=== PATIENT | male | born 1995 | race Caucasian/White ===

== ENCOUNTER 2017-09-22 09:03 | Inpatient (IN) | payer MEDICAID ==
[2017-09-22 10:15] LABS: ADD MAN DIFF? NO
[2017-09-22] MEDS: SODIUM CHLORIDE 0.9% 1L BAG IV* (10:22)
[2017-09-22 10:23] LABS: WHITE BLOOD COUNT 15.4 10^3/ul (4.8-10.8)
[2017-09-22 10:23] LABS: BASOPHILS % 0.1 % (0.0-2.0); EOSINOPHILS % 0.1 % (0.0-7.0); HEMATOCRIT 49.3 % (42.0-52.0); HEMOGLOBIN 15.6 g/dl (14.0-18.0); LYMPHOCYTES # 0.6 10^3/ul (0.8-2.9); LYMPHOCYTES % 4.2 % (15.0-51.0); MEAN CORPUSCULAR HGB CONC 31.6 g/dl (32.0-37.0); MEAN CORPUSCULAR VOLUME 91.6 fl (82.0-101.0); MEAN PLATELET VOLUME 10.8 fl (7.4-10.4); MONOCYTE # 0.5 10^3/ul (0.3-0.9); MONOCYTES % 3.4 % (0.0-11.0); NEUTROPHIL # 14.1 10^3/ul (1.6-7.5); NEUTROPHILS % 91.9 % (39.0-77.0); PLATELET COUNT 313 10^3/UL (140-415); RED BLOOD COUNT 5.38 10^6/ul (4.70-6.10); RED CELL DISTRIBUTION WIDTH 14.4 % (11.5-14.5)
[2017-09-22 10:37] LABS: INR 1.04; PROTIME 13.7 Sec (11.9-14.9); PT RATIO 1.1
[2017-09-22 10:38] LABS: PARTIAL THROMBOPLASTIN TIME 28.6 Sec (25.0-35.0)
[2017-09-22 10:45] LABS: ALANINE AMINOTRANSFERASE 28 IU/L (13-69); ALBUMIN/GLOBULIN RATIO 1.38; ALKALINE PHOSPHATASE 115 IU/L (42-121); ANION GAP 16 (8-16); ASPARTATE AMINO TRANSFERASE 37 IU/L (15-46); BILIRUBIN,INDIRECT 1.2 mg/dl (0-1.1); BILIRUBIN,TOTAL 1.2 mg/dl (0.2-1.3); BLOOD UREA NITROGEN 29 mg/dl (7-20); CALCIUM 9.9 mg/dl (8.4-10.2); CARBON DIOXIDE 31 mmol/L (21-31); CHLORIDE 101 mmol/L (97-110); CREATININE 0.69 mg/dl (0.61-1.24); GLUCOSE 100 mg/dl (70-220); POTASSIUM 3.9 mmol/L (3.5-5.1); SODIUM 144 mmol/L (135-144); TOTAL PROTEIN 8.6 g/dl (6.1-8.1)
[2017-09-22 10:47] LABS: LACTIC ACID 3.4 mmol/L (0.5-2.0)
[2017-09-22] MEDS ORDERED: ACETAMINOPHEN 650MG/20.3ML CUP (10:59)
[2017-09-22] MEDS: CEFEPIME 2GM/50 ML (PMX) 50 ML IVPB (11:14)
[2017-09-22] MEDS: ACETAMINOPHEN 650MG/20.3ML CUP NGT (11:30)
[2017-09-22] MEDS ORDERED: ONDANSETRON 4 MG INJ IV ×2 (11:30→13:00)
[2017-09-22] MEDS ORDERED: ACETAMINOPHEN 325 MG TAB PO ×2 (11:30→13:00)
[2017-09-22 11:31] LABS: URINE BLOOD (Dip) POC Trace-intact (NEGATIVE); URINE GLUCOSE (Dip) POC Negative (NEGATIVE); URINE KETONES (Dip) POC Trace (NEGATIVE); URINE LEUKOCYTE EST (Dip) POC Negative (NEGATIVE); URINE NITRITE (Dip) POC Negative (NEGATIVE); URINE TOTAL PROTEIN POC 1+ (NEGATIVE)
[2017-09-22 11:31] LABS: URINE PH (Dip) POC 8.5 (5.0-8.5)
[2017-09-22 11:38] LABS: ADD UMIC NO; UR ASCORBIC ACID 40 mg/dL (NEGATIVE); UR BILIRUBIN (Dip) NEGATIVE (NEGATIVE); UR BLOOD (Dip) NEGATIVE (NEGATIVE); UR CLARITY CLEAR (CLEAR); UR COLOR YELLOW (YELLOW); UR GLUCOSE (Dip) NEGATIVE (NEGATIVE); UR KETONES (Dip) TRACE mg/dL (NEGATIVE); UR LEUKOCYTE ESTERASE (Dip) NEGATIVE Leu/ul (NEGATIVE); UR NITRITE (Dip) NEGATIVE (NEGATIVE); UR SPECIFIC GRAVITY (Dip) 1.024 (1.003-1.030); UR TOTAL PROTEIN (Dip) NEGATIVE (NEGATIVE); UR UROBILINOGEN (Dip) 1+ mg/dL (NEGATIVE)
[2017-09-22] MEDS: VANCOMYCIN 1 GM (PMX) 250 ML IVPB (12:53)
[2017-09-22] MEDS ORDERED: VANCOMYCIN IV PER PHARMACY XX (13:00)
[2017-09-22] MEDS ORDERED: MAGNESIUM HYDROXIDE 30ML CUP PO (13:00)
[2017-09-22] MEDS ORDERED: hydrALAzine 20 MG INJ IV (13:00)
[2017-09-22] MEDS ORDERED: NACL 0.9% 3 ML SYG IV (13:00)
[2017-09-22] MEDS ORDERED: ALBUTEROL/IPRATROPIUM (NEB) 3 ML AMP HHN (13:00)
[2017-09-22] MEDS ORDERED: NITROGLYCERIN (SL) 0.4 MG TAB SL (13:00)
[2017-09-22] MEDS ORDERED: DOCUSATE SODIUM 100 MG CAP PO (13:00)
[2017-09-22] MEDS ORDERED: HYDROCODONE/APAP (5/325) TAB PO (13:00)
[2017-09-22] MEDS ORDERED: morphine 2 MG INJ IV (13:00)
[2017-09-22] MEDS ORDERED: NA PHOSPHATE/BIPHOS 133 ML ENEMA PR (13:00)
[2017-09-22] MEDS: SOD CHLORIDE 0.9% 1,000 ML IV ×3 (13:13→22:53)
[2017-09-22 13:36] LABS: FREE T4 (FREE THYROXINE) 1.28 ng/dl (0.79-2.35)
[2017-09-22 13:46] LABS: LACTIC ACID 3.3 mmol/L (0.5-2.0)
[2017-09-22] MEDS: LIDOCAINE 1% (MPF) 5 ML VIAL SC (15:10)
[2017-09-22] MEDS: SOD CHLORIDE 0.9% 100 ML (15:30)
[2017-09-22 16:51] LABS: LACTIC ACID 1.1 mmol/L (0.5-2.0)
[2017-09-22] MEDS: GLYCOPYRROLATE 1 MG TAB GTB (17:41)
[2017-09-22 21:26] LABS: LACTIC ACID 1.2 mmol/L (0.5-2.0)
[2017-09-22] MEDS: POLYETHYLENE GLYCOL 17 GM PACKET GTB (21:33)
[2017-09-22] MEDS: MONTELUKAST 10 MG TAB GTB (21:33)
[2017-09-22] MEDS: PIPER-TAZO 3.375 GM IV (PMX) 100 ML IVPB (21:33)
[2017-09-22] MEDS: VANCOMYCIN 750 MG in SOD CHLORIDE 0.9% 150 ML IVPB (21:33)
[2017-09-22] MEDS: MAGNESIUM HYDROXIDE 30ML CUP GTB (21:33)
[2017-09-22] MEDS: ACETAMINOPHEN 325 MG TAB PO (22:00)
[2017-09-22] MEDS: FAMOTIDINE 20 MG TAB GTB (23:49)
[2017-09-22] MEDS: HEPARIN 5,000 UNIT/0.5 ML VIAL SC (23:51)
[2017-09-23 00:20] LABS: LACTIC ACID 1.5 mmol/L (0.5-2.0)
[2017-09-23] MEDS: FLUTICASONE 0.05% 16 GM NAS SPRAY NASAL ×3 (00:56→21:29)
[2017-09-23] MEDS: GLYCOPYRROLATE 1 MG TAB GTB ×4 (00:56→19:06)
[2017-09-23] MEDS: PIPER-TAZO 3.375 GM IV (PMX) 100 ML IVPB ×4 (02:13→19:06)
[2017-09-23] MEDS: SOD CHLORIDE 0.9% 1,000 ML IV ×4 (05:56→19:07)
[2017-09-23 05:59] LABS: ADD MAN DIFF? NO
[2017-09-23 06:12] LABS: WHITE BLOOD COUNT 15.9 10^3/ul (4.8-10.8)
[2017-09-23 06:12] LABS: BASOPHILS % 0.2 % (0.0-2.0); EOSINOPHILS # 0.2 10^3/ul (0.0-0.5); EOSINOPHILS % 0.9 % (0.0-7.0); HEMATOCRIT 35.6 % (42.0-52.0); HEMOGLOBIN 11.4 g/dl (14.0-18.0); LYMPHOCYTES % 12.4 % (15.0-51.0); MEAN CORPUSCULAR HEMOGLOBIN 29.6 pg (29.0-33.0); MEAN CORPUSCULAR VOLUME 92.5 fl (82.0-101.0); MEAN PLATELET VOLUME 10.9 fl (7.4-10.4); MONOCYTE # 0.9 10^3/ul (0.3-0.9); MONOCYTES % 5.6 % (0.0-11.0); NEUTROPHIL # 12.8 10^3/ul (1.6-7.5); NEUTROPHILS % 80.5 % (39.0-77.0); PLATELET COUNT 208 10^3/UL (140-415); RED BLOOD COUNT 3.85 10^6/ul (4.70-6.10); RED CELL DISTRIBUTION WIDTH 14.5 % (11.5-14.5)
[2017-09-23 06:39] LABS: ANION GAP 10 (8-16); BLOOD UREA NITROGEN 9 mg/dl (7-20); CALCIUM 8.5 mg/dl (8.4-10.2); CARBON DIOXIDE 24 mmol/L (21-31); CHLORIDE 109 mmol/L (97-110); CREATININE 0.56 mg/dl (0.61-1.24); GLUCOSE 111 mg/dl (70-220); MAGNESIUM 1.9 mg/dl (1.7-2.5); PHOSPHORUS 3.2 mg/dl (2.5-4.9); POTASSIUM 3.4 mmol/L (3.5-5.1); SODIUM 140 mmol/L (135-144)
[2017-09-23 06:48] LABS: HEMOGLOBIN A1C 5.5 % (0-5.9)
[2017-09-23 06:51] LABS: CHOLESTEROL 60 mg/dl (100-200)
[2017-09-23 06:51] LABS: HDL CHOLESTEROL 30 mg/dl (30-63); LDL CHOLESTEROL,CALCULATED 10 mg/dl; TRIGLYCERIDES 100 mg/dl (0-149)
[2017-09-23 07:06] LABS: THYROID STIMULATING HORMONE 0.865 MIU/L (0.465-4.680)
[2017-09-23] MEDS: VANCOMYCIN 750 MG in SOD CHLORIDE 0.9% 150 ML IVPB ×3 (07:31→21:29)
[2017-09-23] MEDS: POLYETHYLENE GLYCOL 17 GM PACKET GTB ×2 (09:00→21:00)
[2017-09-23] MEDS: FAMOTIDINE 20 MG TAB GTB ×2 (10:31→21:29)
[2017-09-23] MEDS: MULTIVITAMINS THERAPEUTIC TAB GTB (10:31)
[2017-09-23] MEDS: MIDODRINE 5 MG TAB GTB ×3 (10:31→19:05)
[2017-09-23] MEDS: HEPARIN 5,000 UNIT/0.5 ML VIAL SC ×2 (10:48→21:32)
[2017-09-23] MEDS: MAGNESIUM HYDROXIDE 30ML CUP GTB (21:00)
[2017-09-23 21:14] LABS: VANCOMYCIN,TROUGH 16.4 ug/ml (10.0-20.0)
[2017-09-23] MEDS: MONTELUKAST 10 MG TAB GTB (21:29)
[2017-09-24] MEDS: GLYCOPYRROLATE 1 MG TAB GTB ×4 (00:10→20:33)
[2017-09-24] MEDS: PIPER-TAZO 3.375 GM IV (PMX) 100 ML IVPB ×4 (00:10→17:33)
[2017-09-24] MEDS: SOD CHLORIDE 0.9% 1,000 ML IV ×3 (02:00→19:34)
[2017-09-24] MEDS: VANCOMYCIN 750 MG in SOD CHLORIDE 0.9% 150 ML IVPB ×3 (06:08→20:35)
[2017-09-24] MEDS: POLYETHYLENE GLYCOL 17 GM PACKET GTB (08:49)
[2017-09-24] MEDS: MULTIVITAMINS THERAPEUTIC TAB GTB (08:49)
[2017-09-24] MEDS: FAMOTIDINE 20 MG TAB GTB ×2 (08:49→20:33)
[2017-09-24] MEDS: HEPARIN 5,000 UNIT/0.5 ML VIAL SC ×2 (08:52→20:41)
[2017-09-24] MEDS: FLUTICASONE 0.05% 16 GM NAS SPRAY NASAL ×2 (08:53→20:33)
[2017-09-24 09:02] LABS: ADD MAN DIFF? NO
[2017-09-24 09:07] LABS: WHITE BLOOD COUNT 9.5 10^3/ul (4.8-10.8)
[2017-09-24 09:07] LABS: BASOPHILS % 0.2 % (0.0-2.0); EOSINOPHILS # 0.1 10^3/ul (0.0-0.5); EOSINOPHILS % 0.9 % (0.0-7.0); HEMOGLOBIN 11.8 g/dl (14.0-18.0); LYMPHOCYTES # 1.4 10^3/ul (0.8-2.9); LYMPHOCYTES % 14.7 % (15.0-51.0); MEAN CORPUSCULAR HEMOGLOBIN 30.2 pg (29.0-33.0); MEAN CORPUSCULAR HGB CONC 31.9 g/dl (32.0-37.0); MEAN CORPUSCULAR VOLUME 94.6 fl (82.0-101.0); MEAN PLATELET VOLUME 11.6 fl (7.4-10.4); MONOCYTE # 1.1 10^3/ul (0.3-0.9); MONOCYTES % 11.6 % (0.0-11.0); NEUTROPHIL # 6.9 10^3/ul (1.6-7.5); NEUTROPHILS % 72.4 % (39.0-77.0); PLATELET COUNT 233 10^3/UL (140-415); RED BLOOD COUNT 3.91 10^6/ul (4.70-6.10); RED CELL DISTRIBUTION WIDTH 14.1 % (11.5-14.5)
[2017-09-24] MEDS: MIDODRINE 5 MG TAB GTB ×3 (09:54→17:33)
[2017-09-24 09:55] LABS: ANION GAP 11 (8-16); BLOOD UREA NITROGEN 12 mg/dl (7-20); CALCIUM 8.8 mg/dl (8.4-10.2); CARBON DIOXIDE 24 mmol/L (21-31); CHLORIDE 112 mmol/L (97-110); CREATININE 0.75 mg/dl (0.61-1.24); GLUCOSE 106 mg/dl (70-220); POTASSIUM 3.7 mmol/L (3.5-5.1); SODIUM 143 mmol/L (135-144)
[2017-09-24] MEDS ORDERED: morphine 2 MG INJ IV (13:00)
[2017-09-24] MEDS: NYSTATIN 15 GM OINT TOP (18:00)
[2017-09-24] MEDS: MAGNESIUM HYDROXIDE 30ML CUP GTB (20:33)
[2017-09-24] MEDS: MONTELUKAST 10 MG TAB GTB (20:33)
[2017-09-25] MEDS: PIPER-TAZO 3.375 GM IV (PMX) 100 ML IVPB ×5 (01:09→22:05)
[2017-09-25] MEDS: GLYCOPYRROLATE 1 MG TAB GTB ×4 (01:12→18:47)
[2017-09-25] MEDS: VANCOMYCIN 750 MG in SOD CHLORIDE 0.9% 150 ML IVPB ×2 (05:54→14:22)
[2017-09-25] MEDS: SOD CHLORIDE 0.9% 1,000 ML IV (06:16)
[2017-09-25 07:34] LABS: ADD MAN DIFF? NO
[2017-09-25 07:42] LABS: BASOPHILS % 0.4 % (0.0-2.0); EOSINOPHILS % 0.6 % (0.0-7.0); HEMATOCRIT 37.6 % (42.0-52.0); HEMOGLOBIN 11.7 g/dl (14.0-18.0); LYMPHOCYTES # 1.3 10^3/ul (0.8-2.9); LYMPHOCYTES % 18.8 % (15.0-51.0); MEAN CORPUSCULAR HEMOGLOBIN 29.5 pg (29.0-33.0); MEAN CORPUSCULAR HGB CONC 31.1 g/dl (32.0-37.0); MEAN CORPUSCULAR VOLUME 94.9 fl (82.0-101.0); MEAN PLATELET VOLUME 11.4 fl (7.4-10.4); MONOCYTE # 0.8 10^3/ul (0.3-0.9); MONOCYTES % 10.9 % (0.0-11.0); NEUTROPHIL # 4.9 10^3/ul (1.6-7.5); PLATELET COUNT 265 10^3/UL (140-415); RED BLOOD COUNT 3.96 10^6/ul (4.70-6.10); RED CELL DISTRIBUTION WIDTH 14.1 % (11.5-14.5)
[2017-09-25 07:42] LABS: WHITE BLOOD COUNT 7.1 10^3/ul (4.8-10.8)
[2017-09-25 08:02] LABS: ANION GAP 12 (8-16); BLOOD UREA NITROGEN 13 mg/dl (7-20); CALCIUM 8.8 mg/dl (8.4-10.2); CARBON DIOXIDE 24 mmol/L (21-31); CHLORIDE 114 mmol/L (97-110); CREATININE 1.08 mg/dl (0.61-1.24); GLUCOSE 137 mg/dl (70-220); POTASSIUM 3.2 mmol/L (3.5-5.1); SODIUM 147 mmol/L (135-144)
[2017-09-25] MEDS: FAMOTIDINE 20 MG TAB GTB ×2 (09:22→22:05)
[2017-09-25] MEDS: NYSTATIN 15 GM OINT TOP ×2 (09:23→22:05)
[2017-09-25] MEDS: FLUTICASONE 0.05% 16 GM NAS SPRAY NASAL ×2 (09:23→22:05)
[2017-09-25] MEDS: HEPARIN 5,000 UNIT/0.5 ML VIAL SC ×2 (09:41→22:13)
[2017-09-25] MEDS: DEXTROSE 5% 1,000 ML IV ×2 (09:54→22:50)
[2017-09-25] MEDS: MULTIVITAMINS THERAPEUTIC TAB GTB (09:55)
[2017-09-25] MEDS: MIDODRINE 5 MG TAB GTB (09:57)
[2017-09-25] MEDS: POTASSIUM CHLORIDE 100 ML IVPB ×3 (10:38→14:22)
[2017-09-25] MEDS: MIDODRINE 2.5 MG TAB GTB ×2 (14:55→17:10)
[2017-09-25] MEDS: MAGNESIUM HYDROXIDE 30ML CUP GTB (21:00)
[2017-09-25 21:28] LABS: VANCOMYCIN,TROUGH 29.2 ug/ml (10.0-20.0)
[2017-09-25] MEDS: MONTELUKAST 10 MG TAB GTB (22:05)
[2017-09-25] MEDS: LORAZEPAM 2 MG INJ IV (23:59)
[2017-09-26] MEDS: GLYCOPYRROLATE 1 MG TAB GTB ×3 (01:22→12:46)
[2017-09-26] MEDS: PIPER-TAZO 3.375 GM IV (PMX) 100 ML IVPB ×2 (06:05→12:46)
[2017-09-26 08:18] LABS: ADD MAN DIFF? NO; BASOPHILS % 0.3 % (0.0-2.0); EOSINOPHILS # 0.1 10^3/ul (0.0-0.5); EOSINOPHILS % 0.9 % (0.0-7.0); HEMOGLOBIN 12.1 g/dl (14.0-18.0); LYMPHOCYTES % 11.6 % (15.0-51.0); MEAN CORPUSCULAR HEMOGLOBIN 29.7 pg (29.0-33.0); MEAN CORPUSCULAR HGB CONC 31.8 g/dl (32.0-37.0); MEAN CORPUSCULAR VOLUME 93.4 fl (82.0-101.0); MEAN PLATELET VOLUME 10.8 fl (7.4-10.4); MONOCYTE # 1.1 10^3/ul (0.3-0.9); MONOCYTES % 12.9 % (0.0-11.0); NEUTROPHIL # 6.4 10^3/ul (1.6-7.5); NEUTROPHILS % 73.7 % (39.0-77.0); PLATELET COUNT 282 10^3/UL (140-415); RED BLOOD COUNT 4.07 10^6/ul (4.70-6.10); RED CELL DISTRIBUTION WIDTH 13.9 % (11.5-14.5)
[2017-09-26 08:18] LABS: WHITE BLOOD COUNT 8.7 10^3/ul (4.8-10.8)
[2017-09-26 08:40] LABS: ANION GAP 13 (8-16); BLOOD UREA NITROGEN 9 mg/dl (7-20); CALCIUM 8.5 mg/dl (8.4-10.2); CARBON DIOXIDE 26 mmol/L (21-31); CHLORIDE 109 mmol/L (97-110); CREATININE 0.94 mg/dl (0.61-1.24); GLUCOSE 128 mg/dl (70-220); POTASSIUM 3.4 mmol/L (3.5-5.1); SODIUM 145 mmol/L (135-144)
[2017-09-26] MEDS: NYSTATIN 15 GM OINT TOP (09:00)
[2017-09-26] MEDS: FAMOTIDINE 20 MG TAB GTB (09:08)
[2017-09-26] MEDS: FLUTICASONE 0.05% 16 GM NAS SPRAY NASAL (09:08)
[2017-09-26] MEDS: MULTIVITAMINS THERAPEUTIC TAB GTB (09:08)
[2017-09-26] MEDS: HEPARIN 5,000 UNIT/0.5 ML VIAL SC (09:10)
[2017-09-26] MEDS: MIDODRINE 2.5 MG TAB GTB ×2 (09:13→12:47)
[2017-09-26] MEDS: VANCOMYCIN 750 MG in SOD CHLORIDE 0.9% 150 ML IVPB (14:13)
[2017-09-26] MEDS: MEROPENEM 1 GM/50ML(PMX) 50 ML IVPB (16:34)
== END 2017-09-26 18:11 | DRG 871 ==
LOC: E/R 09:03 → TEL 11:28
PROC: 02H633Z Insertion of Infusion Device into Right Atrium, Percutaneous Approach (ICD-10-PCS; principal; 2017-09-22)
DX: A41.9 Sepsis, unspecified organism (principal); J18.9 Pneumonia, unspecified organism; J96.21 Acute and chronic respiratory failure with hypoxia; R65.21 Severe sepsis with septic shock; L03.311 Cellulitis of abdominal wall; K94.22 Gastrostomy infection; B37.89 Other sites of candidiasis; G80.9 Cerebral palsy, unspecified; Z93.0 Tracheostomy status; B95.61 Methicillin susceptible Staphylococcus aureus infection as the cause of diseases classified elsewhere; B95.2 Enterococcus as the cause of diseases classified elsewhere
CPT/HCPCS: 36415; 36569; 71045; 76937; 80048; 80053; 80061; 80202; 81003; 83036; 83605; 83735; 84100; 84439; 84443; 84484; 85025; 85610; 85730; 87040; 87070; 87081; 87086; 93005; 96365; 99291-25